=== PATIENT | female | born 2005 | race Caucasian/White ===

== ENCOUNTER 2025-06-19 12:54 | Outpatient (AMB) | payer OTHER, SELFPAY ==
--- NOTE | 2025-06-19 13:17 | A.OFFVIS_ITS ---
Intake Visit Reasons: testosterone therapy Intake Note: Patient is present for testosterone therapy Urology Medication:none Antibiotic Allergy:none Blood Thinner:none Flower Picker Required: No Allergies No Known Allergies Allergy (Verified 06/19/25 13:19) HPI Comments Details: Meaghan Wall is a pleasant 20-year-old identifying male patient of Dr. Warner who was accompanied by his service dog Luz at today's office visit. Duke presents to the office today as a new patient for testosterone replacement. In discussion with the patient today Duke reports previously being on day tosterone replacement with PCP in the past however is enquiring testosterone replacement with [facility] and therefore was referred here. Duke reports previously being on testosterone replacement for over 2 years. Duke has previously trialed testosterone replacement via patches. Duke reports he was injecting testosterone 0.4 mL weekly however does not wish to continue with injectable therapy. Duke otherwise denies any bothersome urinary issues. Duke denies urinary urgency, urinary frequency, incontinence, nocturia, hematuria, dysuria, foul smelling urine, changes to urinary stream, flank pain, fever, and or chills. Duke is happy with his current voiding parameters. We did discuss further treatment options of testosterone replacement and risks and benefits of these treatment options. We discussed obtaining baseline labs. Duke is agreeable. Duke has undergone double mastectomy [address] Lori Baum. Duke is currently in therapy via online. All questions were answered. Duke otherwise offers no other issues or concerns at this time. Review of Systems Const All systems reviewed & are unremarkable except as noted in HPI and below Physical Exam Const General: cooperative, healthy appearing, comfortable, no acute distress, well developed, alert and awake Orientation/consciousness: patient oriented x3 Limitations: no limitations HEENT Head: Yes normal to inspection, Yes normocephalic and Yes atraumatic Ears: hearing grossly normal bilaterally Eyes General: appearance normal, both eyes and all related structures Neck Neck: Yes normal visual inspection and Yes trachea midline Chest Chest palpation & inspection: normal inspection of the chest Resp Effort & Inspection: normal respiratory effort and able to speak in complete sentences Cardio Rate: regular rate GI Inspection: Yes normal to inspection General: Yes no CVA tenderness Back/Spine/Pelvis Back: no CVA tenderness Skin General skin exam: no rashes or lesions noted Neuro General: patient oriented x3 Extrem General: Yes normal to inspection Psych Appearance: grossly normal and well kempt Mental Status: mental status grossly normal Speech and movement: Normal speech and movement present and Clear speech present Affect: normal affect Attitude: cooperative and Avoids eye contact (attititude/behavior) Thought process: Normal thought process present Thought content: Normal thought content present Insight: Fair insight present (Psych) Judgement: Fair judgement present (Psych) Results AMB Urinalysis, Automated UA Leukoctes 0 Consuelo/uL Last Edit by DAVINA Pritchett on 06/19/25 13:32 UA Nitrite Negative Last Edit by Lara David [facility] on 06/19/25 13:32 UA Urobilinogen 0.2 mg/dL Last Edit by Lara David [facility] on 06/19/25 13:3 2 UA Protein 15 mg/dL Last Edit by Lara David [facility] on 06/19/25 13:32 UA pH 8.0 Last Edit by Lara David [facility] on 06/19/25 13:32 UA Blood 0 [place]/uL Last Edit by Lara David [facility] on 06/19/25 13:32 UA Specific [place] 1.015 Last Edit by Lara David [facility] on 06/19/25 13: 32 UA Ketone Negative Last Edit by Lara David [facility] on 06/19/25 13:32 UA Bilirubin 0 mg/dL Last Edit by Lara David [facility] on 06/19/25 13:32 UA Glucose 0 mg/dL Last Edit by Lara David [facility] on 06/19/25 13:32 Results Reviewed Results Reviewed: Laboratory Last Values Urine pH (Auto) 8.0 06/19/25 13:31 Specific [place] (Auto) 1.015 06/19/25 13:31 Urine Protein (Auto) 15 mg/dL 06/19/25 13:31 Glucose (UA)(Auto) 0 mg/dL 06/19/25 13:31 Urine Ketones (Auto) Negative 06/19/25 13:31 Urine Blood (Auto) 0 [place]/uL 06/19/25 13:31 Urine Nitrite (Auto) Negative 06/19/25 13:31 Urine Bilirubin (Auto) 0 mg/dL 06/19/25 13:31 Urine Urobilinogen (Auto) 0.2 mg/dL 06/19/25 13:31 Leukocyte Esterase (Auto) 0 Consuelo/uL 06/19/25 13:31 Assessment & Plan Assessment & Plan (1) Transgender person on hormone therapy: Code(s): F64.0 - Transsexualism; 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 We did discuss further treatment options of testosterone replacement and risks and benefits of these treatment options. Will obtain CBC, liver function tests, A1c, fasting lipids, prolactin, LH, FSH, and testosterone for further assessment evaluation. He currently denies any bothersome urinary issues or concerns. He reports be happy with current voiding parameters. Follow-up in 2-4 weeks with labs to be completed prior; or sooner with any issues, concerns, and or questions. 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 All questions were answered. Physical exam, labs, and imaging were discussed and reviewed in detail. As well as risks, benefits, and discussion of treatment choices. No major barriers to understanding were identified. The patient expressed understanding and agreement with the above treatment plan. The patient was made aware they should contact our office by phone for worsening of their current condition, the appearance of new symptoms, or with any questions or concerns. Compliance is encouraged with any medications and follow up testing that is ordered. It is a privilege to be allowed the opportunity to participate in? your urological care.? Again, if you have any questions or concerns If you have any questions or concerns please do not hesitate to contact me. The office is [phone]. This note is constructed using voice recognition software. While every effort has been made to ensure accuracy stone gang sawyer errors may have been included. Yours sincerely, TOM Perez Coding Level of Care Code New Pt Level 3 (54142) Diagnoses Transgender person on hormone therapy F64.0; Z79.899
--- OUTSIDE RECORDS SUMMARY | 2025-06-19 14:04 | XMS_ITS | Clinical Summary ---
Author Organization [facility] Address [address] [place] [id number] Phone Care Team Providers Care Joint Cleaning Machine Operator Name Role Phone Unavailable Primary Care Provider Unavailabl e Allergies Active Allergy Reactions Criticality Noted Date Comments Environmental Medications norethindrone 5 MG tablet Take 5 mg by mouth once daily. 05/17/20 21 Active testosterone enanthate 200 MG/ML injection INJECT 50 MG UNDER THE SKIN WEEKLY (THU) FOR 4 WEEKS 02/28/20 22 Active BD SafetyGlide Needle 25G X 5/8 misc 25 GILBERT 5/8 1CC NO TB OR INSULIN SYRINGE MUST BE LUER LOCK REF #[id number] 04/21/20 22 Active B-D SYRINGE LUER-ALEX 1CC 1 ML misc LUER LOCK SYRINGE TO BE USED WITH TESTOSTERONE 04/24/20 22 Active Androderm 4 MG/24HR APPLY 1 PATCH TOPICALLY AT BEDTIME 06/23/20 22 Active methylphenidate 10 MG tabletIndications :Attention deficit hyperactivity disorder (ADHD), combined type Take 1 tablet (10 mg total) by mouth daily. 30 tablet 08/10/20 23 Active Additional Information Patient not taking.Reported on 08/11/2023 sertraline (Zoloft) 50 MG tabletIndications :Depressive disorder,Anxiety disorder, unspecified type Take 3 tablets (150 mg total) by mouth daily. 90 tablet 01/07/20 24 Active Methylphenidate HCl ER 27 MG tablet sustained-release 24 hourIndications:A ttention deficit hyperactivity disorder (ADHD), combined type Take 27 mg by mouth every morning. 30 tablet 01/20/20 24 Active Active Problems Problem Noted Date Diagnosed Date Acne vulgaris 05/04/2023 Overview (05/04/2023): Worsening with testosterone injections Assessment & Plan (05/04/2023 3:31 PM EDT): Will start tretinoin Depressive disorder 06/20/2021 Assessment & Plan (02/12/2023 11:58 AM EDT): Bishop has been moodier of late according to dad. Hanging out with Alan more often. Ultimate melinda Will consider an increase to 150mg daily Assessment & Plan (12/18/2022 11:05 AM EST): Sees therapist Taking Zoloft 125mg with good effect Gender dysphoria 02/21/2021 Assessment & Plan (05/04/2023 3:30 PM EDT): [facility] to [facility] Injectable testosterone every other week Assessment & Plan (02/12/2023 12:03 PM EDT): Meeting with surgeon in February for potential top surgery in September Assessment & Plan (12/18/2022 11:04 AM EST): [facility] at [facility], taking testosterone Assessment & Plan (03/31/2022 9:54 AM EDT): Injections weekly Assessment & Plan (12/02/2021 2:12 PM EST): Regular appointments in [facility] Possible testosterone in February Assessment & Plan (02/21/2021 3:25 PM EDT): He/him pronouns. Prefers Bishop. No hormone therapy now. Possibly starting at [facility] program at [facility] Anxiety disorder 03/01/2020 Assessment & Plan (05/04/2023 3:28 PM EDT): Well controled with zoloft 150mg in the morning Assessment & Plan (03/31/2022 9:59 AM EDT): Feels better on Zoloft 125mg Continue with dose Assessment & Plan (12/02/2021 2:12 PM EST): More anxiety of late. Dad is concerned We discussed need to increase meds to Zoloft 125mg Consistent therapy Consistent Self care Assessment & Plan (05/13/2021 11:30 AM EDT): Doing well on zoloft Assessment & Plan (02/21/2021 3:09 PM EDT): Will increase to 75mg daily Assessment & Plan (06/25/2020 11:07 AM EDT): Doing fine, but we will increase to 50mg daily. Next refill will be for one 50mg tablet Assessment & Plan (04/06/2020 10:28 AM EDT): She is feeling better on the 37.5mg of zoloft although not eating as much. Talking with therapist regularly. No current SI Attention deficit hyperactiv ity disorder (ADHD), combined type 09/03/2015 Overview (09/07/2017): She does quite well on long acting methylphenidate Assessment & Plan (05/04/2023 3:29 PM EDT): Bishop is doing well on 27mg daily Assessment & Plan (02/12/2023 12:02 PM EDT): Maintain current dose 27mg in the morning Short acting in the day Assessment & Plan (12/18/2022 11:04 AM EST): Stick with same dose of Concerta 27mg daily and 10mg short acting occasionally Assessment & Plan (05/13/2021 11:30 AM EDT): Doing well on current dose of methylphenidate 27mg. Assessment & Plan (06/25/2020 11:13 AM EDT): Doing well on current dose Assessment & Plan (04/06/2020 10:28 AM EDT): She feels like this is a good dose and will continue over the summer. Assessment & Plan (09/27/2019 10:33 AM EST): Susan is doing well on concerta 27mg. Sleeping well and eating is ok Assessment & Plan (05/20/2019 11:40 AM EDT): Doing well on concerta 27mg during the school year. Assessment & Plan (09/24/2018 11:55 AM EST): Doing well on on 27mg. School is going well. Eating and sleeping well. Refill needed. Return in 4 months for recheck Assessment & Plan (06/21/2018 10:21 AM EDT): Doing well, took the summer off. Will give refill. Assessment & Plan (02/26/2018 3:45 PM EDT): Doing well in school. Medication is working well. Trouble sleeping. Discussed sleep hygiene. Occasionally taking melatonin Assessment & Plan (11/30/2017 2:34 PM EST): Doing well on medication. Lengthy discussion of eating more healthy foods. Sleeping fair. Will go back on melatonin at night. Hold on cyproheptadine for now. Refills given. Discussed neuropsych testing through [facility]'s office. Assessment & Plan (09/07/2017 3:28 PM EST): Doing great on dose. Started taking cyproheptadine 2 years ago. Will try and come off of it soon. Constipation 09/03/2015 Assessment & Plan (09/07/2017 3:28 PM EST): Improving overall, occasional miralax Immunizations Immunization Administration Dates Next Due COVID-19 Pfizer, monovalent, 12+ years COVID-19 Pfizer, raoul-sucros e, 12+ years 02/17/2022 COVID-19 Vaccine Moderna, se asonal, 12+ years 08/11/2023 DTaP 06/21/2010, 6,2005,09/22,2005 HPV Vaccine 9 Valent 06/21/2018,06/15/2017 Hep A, ped/adol 06/08/2009,11/12/2006 Hep B, ped/adol 2005, 5,2005,06/05 Hib (HbOC) 08/14/2006, 6,2005,07/14 IPV 06/21/2010, 6,2005,07/14 Influenza, injectable, MDCK, preservative free, quadrivalent 06/24/2023,06/04/2022 Influenza, injectable, quadrivalent 09/07/2017 Influenza, injectable, quadr ivalent, preservative free 09/30/2021,06/25/2020,09/27/2019,08/18 Influenza, injectable, trivalent 013,08/10/2012,09/27/2011,07/09,09/30/2008,09/25/2007,08/14/2006 ,2005 Influenza, injectable, triva lent, preservative free 08/23/2016 Influenza, injectable,melissa valent, preservative free, pediatric 08/18/2015 Influenza, intranasal, trivalent 08/12/2014,08/27 MMR 06/08/2009,08/14/2006 Meningococcal Conj (Menactra) MCV4P 05/13/2021,0 06/13/2016 Pneumococcal Conjugate 05/08/2006,2005,2005,07/14 Tdap 06/13/2016 Varicella 06/08/2009,08/14/2006 Family History * Patient is adopted Relation Name Status Comments Father Alive Father: 2 fatlani rs: Kwadwo Bonilla and Gus Gianlucaelva (partners) Other Alive Siblings: Geovani leone (1997), Barrie (1998) Social History Tobacco Use Types Packs/Day Years Used Date Smoking Tobacco: Never Assessed Hunger/Food Answer Date Recorded In the last 12 months, did y ou or your family ever eat less than you felt you should because there wasn't enough money for food? No 08/10/2023 Stable Housing Answer Date Recorded Are you worried that in the next 2 months you may not have stable housing? No 08/10/2023 Transportation Concerns Answer Date Rec orded In the last 12 months, have you or your family ever had to go without healthcare because you didn't have a way to get there? No 08/10/2023 Hazards in Home Answer Date Recorded Think about the place you li ve. Do you have problems with any of the following? Pests (mice or roaches), mold, no/not working smoke detectors, water leaks, no window guards. No 2022 Financing Utilities Answer Date Recorde d In the last 12 months, has t he electric, gas, oil, or water company threatened to shut off your services in your home? No 08/10/2023 Safety at Home Answer Date Recorded Are you or your family worried about feeling saf e in your home? No 08/10/2023 Outside Support Answer Date Recorded Do you feel that you need mo re support from other people or programs to help you care for yourself or your family? No 08/10/2023 Understanding Health Concerns Answer Da te Recorded Do you need help understandi ng your or your child's healthcare needs (diagnosis, medications, plan, etc.)? No 08/10/2023 Financing Health Concerns Answer Date R ecorded In the last 12 months, was t here a time when your child needed to see a doctor or get medications or supplies but could not because of cost? No 08/10/2023 Missing School or Work Answer Date Abelino rded Did you or your child miss s chool or work because of a health problem that could have been avoided? No 08/10/2023 Comments Unknown Sex and Gender Information Value Date Recorded Sex Assigned at Not on file Legal Sex Female 6:59 PM EST Gender Identity Transgender Male 02/21/2021 3:07 PM EDT Sexual Orientation Bisexual 05/13/2021 11 :29 AM EDT Last Filed Vital Signs Vital Sign Reading Time Taken Comments Blood Pressure 120/80 08/11/2023 9:30 AM EDT Pulse 83 05/04/2023 3:17 PM EDT Temperature 36.9 C (98.4 F) 09/30/2021 2:15 PM EST Respiratory Rate - - Oxygen Saturation - - Inhaled Oxygen Concentration - - Weight 69.9 kg (154 lb) 08/11/2023 9:30 AM EDT Height 165.4 cm (5' 5.12 ) 08/11/2023 9:30 AM ED T Body Mass Index 25.53 08/11/2023 9:30 AM EDT Plan of Treatment Health Maintenance Due Date Last Done Comments Men B Vaccine (1 of 2 - Standard) 2021 COVID-19 Vaccine (7 - 2023-2 5 season) 2024 08/11/2023, 08/18/2022, 02/17/2022, Additional history exists Influenza Vaccines (#1) 2025 06/24/20, 06/04/2022, 09/30/2021, Additional history exists DTaP,Tdap,and Td Vaccines (7 - Td or Tdap) 06/13/2026 06/13/2016, 06/21/2010, 08/14/2006, Additional history exists Hepatitis B Vaccines Completed 2005, 2005, 2005, Additional history exists Pneumococcal Vaccine Completed 05/08/2006, 2005, 2005, Additional history exists HIB Vaccines Completed 08/14/2006, 03/2006, 2005, Additional history exists Hepatitis A Vaccines Completed 06/08/2009, 11/12/19 07 MMR Vaccines Completed 06/08/2009, 08/14/2006 Varicella Vaccines Completed 06/08/2009, 08/14/2006 IPV Vaccines Completed 06/21/2010, 03/2006, 2005, Additional history exists HPV Vaccines Completed 06/21/2018, 06/15/2017 Meningococcal Vaccine Completed 05/13/2021, 016 Insurance [facility] NON [place] [address] [place] [address] HMO [facility] NON [facility]CC
--- OUTSIDE RECORDS SUMMARY | 2025-06-19 14:04 | XMS_ITS | Clinical Summary ---
Author Organization [facility] Address [address] [place] [phone] Phone Care Team Providers Care Policewoman Name Role Phone Puriv Walton NP Primary Care Provider Allergies Active Allergy Reactions Criticality Noted Date Comments Pollen Extracts 05/18/2022 Medications methylphenidate HCl (RITALIN) 10 MG tablet Take 10 mg by mouth daily. 2 Active methylphenidate HCl 27 MG CR tablet Take 27 mg by mouth every morning. 2 Active norethindrone (AYGESTIN) 5 mg tablet Take 5 mg by mouth. 1 Active sertraline (ZOLOFT) 50 MG tablet Take 125 mg by mouth. 2 Active testosterone enanthate (DELATESTRYL) 200 mg/mL injection INJECT 50 MG UNDER THE SKIN WEEKLY (THU) FOR 4 WEEKS 2 Active BD LUER-ALEX SYRINGE 1 mL Syrg LUER LOCK SYRINGE TO BE USED WITH TESTOSTERONE 2 Active BD SAFETYGLIDE NEEDLE 25 gauge x 5/8 Ndle 25 GILBERT 5/8 1CC NO TB OR INSULIN SYRINGE MUST BE LUER LOCK REF #[id number] 2 Active buPROPion (WELLBUTRIN XL) 300 MG ER 24 hr tablet 4 Active PREVIDENT 5000 SENSITIVE 1.1-5 % Pste USE 2-3X/DAILY, SPIT OUT EXCESS. DO NOT RINSE WITH WATER. NO EATING OR DRINKING FOR 45 MIN AFTER 4 Active BD REGULAR BEVEL NEEDLES 18 gauge x 1 1/2 Ndle USE DIRECTED TO DRAW UP TESTOSTERONE ONCE A WEEK Active Social History Tobacco Use Types Packs/Day Years Used Date Smoking Tobacco: Never Smokeless Tobacco: Never Tobacco Cessation:Counseling Given: Not Answered Alcohol Use Standard Drinks/Week Comments Never 0 (1 standard drink = 0.6 oz pur e alcohol) Education Answer Date Recorded Are you interested in more education? Not on leonarda e 02/21/2023 Are you concerned about learning? Not on file 02/21/2023 No 02/21/2023 No 02/21/2023 Digital Access Answer Date Recorded No 03/24/2023 No 03/24/2023 Reliable internet access at home? Not on file 03/24/2023 Device with a working camera? Not on file Comments No Sex and Gender Information Value Date Recorded Sex Assigned at Not on file Legal Sex Female 1:01 PM EDT Gender Identity Not on file Sexual Orientation Not on file Last Filed Vital Signs Vital Sign Reading Time Taken Comments Blood Pressure 110/76 09/14/2024 7:57 AM EST Pulse 94 05/18/2022 1:49 PM EDT Temperature 36.9 C (98.5 F) 05/18/2022 1:49 PM EDT Respiratory Rate - - Oxygen Saturation 96% 05/18/2022 1:49 PM EDT Inhaled Oxygen Concentration - - Weight 69.7 kg (153 lb 9.6 oz) 09/14/2024 7:57 A M EST Height 162.6 cm (5' 4 ) 09/14/2024 7:57 AM EST Body Mass Index 26.37 09/14/2024 7:57 AM EST Plan of Treatment Health Maintenance Due Date Last Done Comments DEVELOPMENTAL/BEHAVIORAL SCREENING (PHQ, PSC, or SWYC) 2008 DEPRESSION SCREENING 2017 HPV VACCINES (1 - 3-dose series) 2020 MENINGOCOCCAL VACCINES (B) (1 of 2 - Standard) 2021 ADOLESCENT UNIVERSAL LIPID SCREENING 2022 HEPATITIS C SCREENING 2023 HIV ONE-TIME SCREENING (18-65 YEARS) 2023 SMOKING Hx and SMOKELESS TOBACCO SCREENING 09/14/2025 09/14/2024 COMBINED DTaP,Tdap,Td (7 - Td or Tdap) 06/13/2026 06/13/2016, 06/21/2010, 08/14/2006, Additional history exists MMR VACCINES Completed 06/08/2009, 08/14/2006 VARICELLA VACCINES Completed 06/08/2009, 08/14/2006 COVID-19 VACCINE Completed 07/14/2024 HEPATITIS A VACCINES Aged Out No long er eligible based on patient's age to complete this topic HIB VACCINES Aged Out No longer eligi ble based on patient's age to complete this topic MENINGOCOCCAL VACCINES (ACWY) Aged Out No longer eligible based on patient's age to complete this topic PNEUMOCOCCAL VACCINES (0-49 years) Aged Out No longer eligible based on patient's age to complete this topic Medical Devices Not on file [place] [address] [address] ACO Care Teams Policewoman Relationship Specialty Start Date End Date Purvi Walton NP [address] [facility] [address] [place] [address] PCP - General Nurse Practitioner 09/05/24 Additional Source Comments The information contained in this document represents components of the legal health record. It is not the complete legal health record.[facility]
--- OUTSIDE RECORDS SUMMARY | 2025-06-19 14:04 | XMS_ITS | Clinical Summary ---
Author Organization [facility] Address [address] [place] [address] Phone Care Team Providers Care Food Preparer Name Role Phone Jeff Soliz MD Primary Care Provider [phone] Jeff Soliz MD Unavailable Jeff Solzi MD Unavailable Medications * This document contains information received from the source organization and may not represent a complete record from that organization. methylphenidate (Ritalin) 10 mg tablet mg, tab, PO, BID, Refills: 0, Entered: 05/17/21 16:02:00 EDT 05/17/2021 Active norethindrone (Aygestin) 5 mg tablet Dose: 5 mg, Dose Amount: 1 tab, PO, daily, Dispense Quantity: 90 tab, Refills: 2, Entered: 09/03/23 9:49:00 EST, [id number] 09/03/2023 Active testosterone enanthate (Delatestryl) 200 mg/mL injection Dose: 50 mg, Subcutaneous, WeeklyMonday, Special Instructions: please dispense 2mL as some is lost when draing up medication, Dispense Quantity: 2 mL, Refills: 5, Entered: 12/19/22 10:16:00 EST, [id number] 12/19/2022 Active sertraline HCl (SERTRALINE ORAL) Take by mouth 1 time each day. 05/17/2021 Active Active Problems Problem Noted Date Diagnosed Date Attention deficit hyperactivity disorder (ADHD) 05/17/2021 Depression 05/17/2021 Immunizations Immunization Administration Dates Next Due Mom Made Foods Purple Cap SARS-CoV-2 04/07/2021,03/17/20 21 Social History Tobacco Use Types Packs/Day Years Used Date Smoking Tobacco: Never Assessed Comments Unknown Sex and Gender Information Value Date Recorded Sex Assigned at Female 02/02/2024 6:48 PM EDT Legal Sex Female 6:48 PM EDT Gender Identity Not on file Sexual Orientation Not on file Last Filed Vital Signs Vital Sign Reading Time Taken Comments Blood Pressure 117/70 09/03/2023 9:11 AM EST Pulse 122 09/03/2023 9:11 AM EST Temperature - - Respiratory Rate - - Oxygen Saturation - - Inhaled Oxygen Concentration - - Weight 69.4 kg (153 lb) 09/03/2023 9:11 AM EST Height 164.7 cm (5' 4.84 ) 09/03/2023 9:11 AM ES T Body Mass Index 25.58 09/03/2023 9:11 AM EST Plan of Treatment Health Maintenance Due Date Last Done Comments Meningococcal B Vaccine (1 of 2 - Standard) 2021 COVID-19 Vaccine ( - season) 2024 08/11/2023, 02/17/2022, 11/22/2021, Additional history exists Influenza Vaccine (#1) 2025 , 06/04/2022, 09/30/2021, Additional history exists DTaP/Tdap/Td Vaccines (7 - Td or Tdap) 06/13/2026 06/13/2016, 06/21/2010, 08/14/2006, Additional history exists Hepatitis B Vaccines Completed 2005, 2005, 2005, Additional history exists Pneumococcal Vaccine: Pediatrics (0 to 5 Years) and At-Risk Patients (6 to 49 Years) Aged Out 05/08/2006, 2005, 2005, Additional history exists No longer eligible based on patient's age to complete this topic HIB Vaccines Completed 08/14/2006, 03/2006, 2005, Additional history exists Hepatitis A Vaccines Completed 06/08/2009, 11/12/19 MMR Vaccines Completed 06/08/2009, 08/14/2006 Varicella Vaccines Discontinued 06/08/2009, 08/14/2006 IPV Vaccines Completed 06/21/2010, 02/0 03/2006, 2005, Additional history exists HPV Vaccines Completed 06/21/2018, 06/15/2017 Meningococcal Vaccine Completed 05/13/2021, 016 Rotavirus Vaccines Aged Out No longer eligible based on patient's age to complete this topic Care Teams Food Preparer Relationship Specialty Start Date End Date Jeff Soliz MD [address] [place] [address] PCP - General 05/18/13 Jeff Soliz MD [address] [place] [address] PCP - Insurance PCP 10/08/18 Jeff Soliz MD [address] [place] [address] PCP - Clinical PCP 03/25/11
== END 2025-06-19 13:47 | disposition home or self-care (01) ==
LOC: HO.HUSH 12:54
PROVIDERS: PCP Internal Medicine Endocrinology, Diabetes & Metabolism; Visit Provider Nurse Practitioner Family
DX: F64.0 Transsexualism (principal); Z79.899 Other long term (current) drug therapy; Z13.9 Encounter for screening, unspecified
CPT/HCPCS: 99203

== ENCOUNTER → 2025-06-19 12:54 | Outpatient (BNVA) | payer OTHER, SELFPAY | PROVIDERS: PCP Internal Medicine Endocrinology, Diabetes & Metabolism; Visit Provider Nurse Practitioner Family | DX: Z79.899 Other long term (current) drug therapy (principal) | CPT/HCPCS: 81003 ==

== ENCOUNTER 2025-06-27 07:43 | Outpatient (REF) | payer OTHER, SELFPAY ==
--- OUTSIDE RECORDS SUMMARY | 2025-06-27 07:48 | XMS_ITS | Encounter Summary ---
Author Organization [facility] Address [address] [place] [address] Phone Care Team Providers Care Professional Sports Scout Name Role Phone Jeff Soliz MD Primary Care Provider [phone] Encounter Details Date Type Department Care Team (Late st Contact Info) Description 06/03/2017 Conversion Encounter [facility] [address] [place] [address] Jeff Soliz MD [address] [place] [address] Social History Tobacco Use Types Packs/Day Years Used Date Smoking Tobacco: Never Assessed Comments Unknown Sex and Gender Information Value Date Recorded Sex Assigned at Not on file Legal Sex Female 6:59 PM EST Gender Identity Transgender Male 02/21/2021 3:07 PM EDT Sexual Orientation Bisexual 05/13/2021 11 :29 AM EDT documented as of this encounter Plan of Treatment Not on file documented as of this encounter Visit Diagnoses Not on filedocumented in this encounter Care Teams Professional Sports Scout Relationship Specialty Start Date End Date Jeff Soliz MD [address] [place] [address] PCP - General Pediatrics 01/20/24 01/20/24 documented as of this encounter
--- OUTSIDE RECORDS SUMMARY | 2025-06-27 07:48 | XMS_ITS | Clinical Summary ---
Author Organization [facility] Address [address] [place] [address] Phone Care Team Providers Care Wire Drawing Machine Tender Name Role Phone Jeff Soliz MD Primary Care Provider [phone] Jeff Soliz MD Unavailable Jeff Soliz MD Unavailable Medications * This document contains [...] 05/17/2021 Immunizations Immunization Administration Dates Next Due [employer] Purple Cap SARS-CoV-2 04/07/2021,03/17/20 21 Social History [...] age to complete this topic Care Teams Wire Drawing Machine Tender Relationship Specialty Start Date End Date Jeff Soliz MD [address] [place] [address] PCP - General 05/18/13 Jeff Soliz MD [address] [place] [address] PCP - Insurance PCP 10/08/18 Jeff Soliz MD [address] [place] [address] PCP - Clinical PCP 03/25/11
--- OUTSIDE RECORDS SUMMARY | 2025-06-27 07:48 | XMS_ITS | Encounter Summary ---
Author Organization [facility] Address [address] [place] [address] Phone Care Team Providers Care Design Analyst Name Role Phone Jeff Soliz MD Primary Care Provider [phone] Reason for Visit * Reason Comments Med Refill Encounter Details Date Type Department Care Team ([facility] st Contact Info) Description 05/10/2022 Refill [facility] [address] [place] [address] Jeff Soliz MD [address] [place] [address] Depressive disorder; Anxiety disorder, unspecified type Social History Tobacco Use Types Packs/Day Years Used Date Smoking Tobacco: Never Assessed Hunger/Food Answer Date Recorded In the last 12 months, did y ou or your family ever eat less than you felt you should because there wasn't enough money for food? No 05/13/2021 Stable Housing Answer Date Recorded Are you worried that in the next 2 months you may not have stable housing? No 05/13/2021 Transportation Concerns Answer Date Rec orded In the last 12 months, have you or your family ever had to go without healthcare because you didn't have a way to get there? No 05/13/2021 Hazards in Home Answer Date Recorded Think about the place you li ve. Do you have problems with any of the following? Pests (mice or roaches), mold, no/not working smoke detectors, water leaks, no window guards. No 2020 Financing Utilities Answer Date Recorde d In the last 12 months, has t he electric, gas, oil, or water company threatened to shut off your services in your home? No 05/13/2021 Safety at Home Answer Date Recorded Are you or your family worried about feeling saf e in your home? No 05/13/2021 Outside Support Answer Date Recorded Do you feel that you need mo re support from other people or programs to help you care for yourself or your family? No 05/13/2021 Understanding Health Concerns Answer Da te Recorded Do you need help understandi ng your or your child's healthcare needs (diagnosis, medications, plan, etc.)? No 05/13/2021 Financing Health Concerns Answer Date R ecorded In the last 12 months, was t here a time when your child needed to see a doctor or get medications or supplies but could not because of cost? No 05/13/2021 Missing School or Work Answer Date Abelino rded Did you or your child miss s chool or work because of a health problem that could have been avoided? No 05/13/2021 Comments Unknown Sex and Gender Information Value Date Recorded Sex Assigned at Not on file Legal Sex Female 6:59 PM EST Gender Identity Transgender Male 02/21/2021 3:07 PM EDT Sexual Orientation Bisexual 05/13/2021 11 :29 AM EDT documented as of this encounter Plan of Treatment Not on file documented as of this encounter Visit Diagnoses Diagnosis Depressive disorder Depressive disorder, not elsewhere classified Anxiety disorder, unspecified type documented in this encounter Care Teams Design Analyst Relationship Specialty Start Date End Date Jeff Soliz MD [address] [place] [address] PCP - General Pediatrics 01/20/24 01/20/24 documented as of this encounter
--- OUTSIDE RECORDS SUMMARY | 2025-06-27 07:48 | XMS_ITS | Clinical Summary ---
Author Organization [facility] Address [address] [place] [address] Phone Care Team Providers Care On Air Personality Name Role Phone Purvi Walton NP Primary Care Provider Allergies Active [...] INSULIN SYRINGE MUST BE LUER LOCK REF #[id number] 2 Active buPROPion (WELLBUTRIN XL) 300 MG [...] topic Medical Devices Not on file Insurance [address] [address] ACO Care Teams On Air Personality Relationship Specialty Start Date End Date Purvi Walton NP [facility] [address] [place] [address] PCP - General Nurse Practitioner 09/05/24 Additional Source Comments The information contained in this document represents components of the legal health record. It is not the complete legal health record.[facility]
--- OUTSIDE RECORDS SUMMARY | 2025-06-27 07:48 | XMS_ITS | Encounter Summary ---
Author Organization [facility] Address [address] [place] [address] Phone Care Team Providers Care Credit Charge Authorizer Name Role Phone Jeff Soliz MD Primary Care Provider [phone] Reason for Visit * Reason Comments Med Refill Encounter Details Date Type Department Care Team (Late st Contact Info) Description 03/19/2020 Refill [facility] [address] [place], [place] [id number] Jeff Soliz MD [address] [place] [address] Anxiety disorder, unspecified type Social History Tobacco Use Types Packs/Day Years Used Date Smoking Tobacco: Never Assessed Hunger/Food Answer Date Recorded No 05/20/2019 Stable Housing Answer Date Recorded No 10/29/2019 Transportation Concerns Answer Date Rec orded No 05/20/2019 Hazards in Home Answer Date Recorded No 05/20/2019 Financing Utilities Answer Date Recorde d No 05/20/2019 Safety at Home Answer Date Recorded No 05/20/2019 Outside Support Answer Date Recorded No 05/20/2019 Understanding Health Concerns Answer Da te Recorded No 05/20/2019 Financing Health Concerns Answer Date R ecorded No 05/20/2019 Missing School or Work Answer Date Abelino rded No 05/20/2019 Comments Unknown Sex and Gender Information Value Date Recorded Sex Assigned at Not on file Legal Sex Female 6:59 PM EST Gender Identity Transgender Male 02/21/2021 3:07 PM EDT Sexual Orientation Bisexual 05/13/2021 11 :29 AM EDT documented as of this encounter Miscellaneous Notes * Telephone Encounter - Linsey Muse RN - 04/02/2020 5:[address] Soliz can you please refuse this med, the phone nurses cannot get it out of our cue with a Rx still attached (it also wont let us refuse the med) thanks! * Telephone Encounter - Linsey Muse RN - 03/20/2020 9:13 AM EDT Dad states he is unsure if he needs a new Rx, will call pharmacy and confirm with us if needed * Telephone Encounter - Jeff Soliz MD - 03/20/2020 8:18 AM EDT Please call to check on dose and see if a new prescription is needed documented in this encounter Plan of Treatment Not on file documented as of this encounter Visit Diagnoses Diagnosis Anxiety disorder, unspecified type documented in this encounter Care Teams Credit Charge Authorizer Relationship Specialty Start Date End Date Jeff Soliz MD [address] [place] [address] PCP - General Pediatrics 01/20/24 01/20/24 documented as of this encounter
--- OUTSIDE RECORDS SUMMARY | 2025-06-27 07:48 | XMS_ITS | Encounter Summary ---
Author Organization [facility] Address [address] [place] [address] Phone Care Team Providers Care It Telecom Technician Name Role Phone Jeff Soliz MD Primary Care Provider [phone] Reason for Visit * Reason Comments Med Refill Encounter Details Date Type Department Care Team ([facility] st Contact Info) Description 07/22/2020 Refill [facility] [address] [place] [address] Jeff Soliz MD [address] [place] [address] Anxiety disorder, unspecified type Social History Tobacco Use Types Packs/Day Years Used Date Smoking Tobacco: Never Assessed Hunger/Food Answer Date Recorded In the last 12 months, did y ou or your family ever eat less than you felt you should because there wasn't enough money for food? No 06/25/2020 Stable Housing Answer Date Recorded Are you worried that in the next 2 months you may not have stable housing? No 06/25/2020 Transportation Concerns Answer Date Rec orded In the last 12 months, have you or your family ever had to go without healthcare because you didn't have a way to get there? No 06/25/2020 Hazards in Home Answer Date Recorded Think about the place you li ve. Do you have problems with any of the following? Pests (mice or roaches), mold, no/not working smoke detectors, water leaks, no window guards. No 2019 Financing Utilities Answer Date Recorde d In the last 12 months, has t he electric, gas, oil, or water company threatened to shut off your services in your home? No 06/25/2020 Safety at Home Answer Date Recorded Are you or your family worried about feeling saf e in your home? No 06/25/2020 Outside Support Answer Date Recorded Do you feel that you need mo re support from other people or programs to help you care for yourself or your family? No 06/25/2020 Understanding Health Concerns Answer Da te Recorded Do you need help understandi ng your or your child's healthcare needs (diagnosis, medications, plan, etc.)? No 06/25/2020 Financing Health Concerns Answer Date R ecorded In the last 12 months, was t here a time when your child needed to see a doctor or get medications or supplies but could not because of cost? No 06/25/2020 Missing School or Work Answer Date Abelino rded Did you or your child miss s chool or work because of a health problem that could have been avoided? No 06/25/2020 Comments Unknown Sex and Gender Information Value Date Recorded Sex Assigned at Not on file Legal Sex Female 6:59 PM EST Gender Identity Transgender Male 02/21/2021 3:07 PM EDT Sexual Orientation Bisexual 05/13/2021 11 :29 AM EDT documented as of this encounter Miscellaneous Notes * Telephone Encounter - Linsey Muse RN - 07/27/2020 2:01 PM EDT Dad calling back and confirmed dose was increased at last visit. Confirms [address] Soliz please advise on new Rx, dad states OK to switch to one 50mg tab and aware to read new Rxwhen picked up. * Telephone Encounter - Angelique Lopez RN - 07/27/2020 10:07 AM EDT Dad requests refill of Sertraline 50 mg daily. Last script written on 05/14/20 was for Sertraline 25 mg, take 1 1/2 tabs daily. Last well visit was 06/25/20. Left message for dad to call back to confirm dose. * Telephone Encounter - Linsey Muse RN - 07/23/2020 2:45 PM EDT LM on dad cell to call back to confirm if refill is needed documented in this encounter Plan of Treatment Not on file documented as of this encounter Visit Diagnoses Diagnosis Anxiety disorder, unspecified type documented in this encounter Care Teams It Telecom Technician Relationship Specialty Start Date End Date Jeff Soliz MD [address] [place] [address] PCP - General Pediatrics 01/20/24 01/20/24 documented as of this encounter
--- OUTSIDE RECORDS SUMMARY | 2025-06-27 07:48 | XMS_ITS | Clinical Summary ---
Author Organization [facility] Address [address] [place] [address] Phone Care Team Providers Care Crane Operator Name Role Phone Unavailable Primary Care [...] INSULIN SYRINGE MUST BE LUER LOCK REF #[id number] 04/21/20 22 Active B-D SYRINGE LUER-ALEX 1CC [...] Plan (05/04/2023 3:30 PM EDT): [facility] Inject[facility] testosterone every other week Assessment & Plan (02/12/2023 12:03 PM EDT): Meeting with surgeon in February for potential top surgery in September Assessment & Plan (12/18/2022 11:04 AM EST): [facility] at [facility], taking testosterone Assessment & Plan (03/31/2022 9:54 AM EDT): Injections weekly Assessment & Plan (12/02/2021 2:12 PM EST): Regular appointments in [facility] Possible testosterone in February Assessment & Plan (02/21/2021 3:25 PM EDT): He/him pronouns. Prefers [facility]. No hormone therapy now. Possibly starting at [facility] at [facility] Anxiety disorder 03/01/2020 Assessment & [...] Discussed neuropsych testing through [facility]'s office. Assessment & Plan (09/07/2017 3:28 PM [...] 08/10/2023 Missing School or Work Answer Date Abeilno rded Did you or your child miss [...] Vaccine (1 of 2 - Standard) 2021 Influenza Vaccines (#1) 2025 06/24/20 23, 06/04/2022, 09/30/2021, Additional history exists COVID-19 Vaccine (7 - 2024-2 6 season) 2025 08/11/2023, 08/18/2022, 02/17/2022, Additional history exists DTaP,Tdap,and Td Vaccines (7 [...] 06/15/2017 Meningococcal Vaccine Completed 05/13/2021, 016 Insurance [facility] [place] [address] [place] [address] HMO [facility]
--- OUTSIDE RECORDS SUMMARY | 2025-06-27 07:48 | XMS_ITS | Encounter Summary ---
Author Organization [facility] Address [address] [place] [address] Phone Care Team Providers Care Director Machine Name Role Phone Jeff Soliz MD Primary Care Provider [phone] Jeff Soliz MD Unavailable Jeff Soliz MD Unavailable Encounter Details Date Type Department Care Team (Latest Contact Info) Description 03/25/2024 Abstract Cerner Conversion ProviderJigna MD [address] [place] [address] Social History Tobacco Use Types Packs/Day Years Used Date Smoking Tobacco: Never Assessed Comments Unknown Sex and Gender Information Value Date Recorded Sex Assigned at Female 02/02/2024 6:48 PM EDT Legal Sex Female 6:48 PM EDT Gender Identity Not on file Sexual Orientation Not on file documented as of this encounter Plan of Treatment Not on file documented as of this encounter Visit Diagnoses Not on filedocumented in this encounter Care Teams Director Machine Relationship Specialty Start Date End Date Jeff Soliz MD [address] [place] [address] PCP - General 05/18/13 Jeff Soliz MD [address] [place] [address] PCP - Insurance PCP 10/08/18 Jeff Soliz MD [address] [place] [address] PCP - Clinical PCP 03/25/11 documented as of this encounter
[2025-06-27 08:46] LABS: Hematocrit 41.3 % (37.0-47.0); Hemoglobin 14.3 g/dl (12.0-16.0); Mean Corpuscular HGB Conc 34.6 g/dl (31.0-35.0); Mean Corpuscular Hemoglobin 30.8 pg (27.0-33.0); Mean Corpuscular Volume 89.0 fL (80.0-98.0); NRBC Abs Auto 0.000 X10*3/uL (0.0-0.012); NRBC Pct Auto 0.0 /100WBC (0.0-0.2); Platelet Count 249 X10*3/uL (160-400); Red Blood Count 4.64 X10*6/uL (4.20-5.50); White Blood Count 5.7 X10*3/uL (4.8-10.8)
[2025-06-27 08:54] LABS: Hemoglobin A1C 116.9788 umol/L; Total Hemoglobin (HGBA1C) 3644.1327 umol/L
[2025-06-27 09:27] LABS: Alanine Aminotransferase 20 U/L (0-31); Albumin Level 4.9 g/dL (3.5-5.0); Alkaline Phosphatase 75 U/L (39-117); Anion Gap 11 (12-20); Aspartate Amino Transferase 23 U/L (5-31); Blood Urea Nitrogen 11 mg/dL (9-16); Calcium 9.3 mg/dL (8.4-10.2); Carbon Dioxide 27 mmol/L (22-29); Chloride 106 mmol/L (96-108); Estimated Glomerular Filt Rate > 60; Potassium 4.1 mmol/L (3.3-5.1); Sodium 140 mmol/L (135-145); Total Protein 7.7 g/dL (6.5-8.0)
[2025-06-28 07:03] LABS: Follicle Stimulating Hormone 7.3 mIU/mL
[2025-07-01 16:09] LABS: Testosterone, Free 2.4 pg/mL (0.1-6.4)
[2025-07-03 08:54] LABS: Estradiol Ultra Sensitive 3 pg/mL
== END 2025-06-27 07:44 | disposition home or self-care (01) ==
LOC: HO.LAB 07:43
PROVIDERS: Visit Provider Nurse Practitioner Family
DX: F64.0 Transsexualism (principal); Z79.899 Other long term (current) drug therapy
CPT/HCPCS: 36415; 80048; 80076; 82670; 83001; 83002; 83036; 84146; 84402; 84403; 85027

== ENCOUNTER 2025-07-05 15:00 | Outpatient (AMB) | payer OTHER, SELFPAY ==
--- NOTE | 2025-07-05 15:01 | A.OFFVIS_ITS ---
Intake Visit Reasons: Follow up/Labs Intake Note: Patient is present for FOLLOW UP Urology Medication:none Antibiotic Allergy:none Blood Thinner:none Labs done 06/27/25 : Estradiol : 3, FSH:7.3 , LH 4.8, Prolactin :8.7, Total Testosterone : 11. Fr Testosterone, 2.4 Advertising Account Representative Required: No Accompanied by: Self / Same As Patient Allergies No Known Allergies Allergy (Verified 07/05/25 15:06) HPI Comments Details: Meaghan Alas is a pleasant 20-year-old female template, male identifying patient of Dr. Warner. He is seen for the following urologic conditions - testosterone dosing Telemedicine Evaluation 15 min Consultation Super[employer] [place] Video Female template, male identifying - has been under therapy for gender dysphoria since 2022 - Underwent double mastectomy with Dr. Baum in 2022 - initial testosterone replacement via injectable. Has difficulty with proper dosage administration. Unable to properly place intramuscular. Has no other people who are able to inject for him. - unable to tolerate testosterone gel secondary to concerns and fears regarding transfer to other females within his [place]. Has diagnosis of ADHD in concerns about regularly remembering to applied dosage. - ADHD managed with combination considered and bupropion Has heard about testicle which would be a smoother form of administration and not require remembering daily application Discussed administration every 12 weeks Highlighted super physiologic dosing in a Female templated body with increased risks of diabetes mellitus and cardiac disease over a 10 year timeframe. This is based on recent [facility] data. We will try and get insurance approval Review of Systems Const All systems reviewed & are unremarkable except as noted in HPI and below Reports no additional complaints Resp Reports no additional complaints GI Reports no additional complaints Reports as per HPI Musc Reports no additional complaints Physical Exam Telemedicine evaluation Appropriate responses Regular breathing rate and rhythm HEENT Head: Yes normal to inspection Ears: hearing grossly normal bilaterally Eyes General: appearance normal, both eyes and all related structures Neck Neck: Yes normal visual inspection Chest Chest palpation & inspection: normal inspection of the chest Resp Effort & Inspection: normal respiratory effort and able to speak in complete sentences Telehealth Telehealth Telehealth Platform: Superfish Location of provider rendering services: practice address Location of patient: address on file Patient Identification confirmed using: Name, : Yes Telehealth method: video Patient verbally consented to treatment: Yes Patient verbally consented to billing insurance company: Yes Patient informed of any privacy concerns related to visit: Yes Assessment & Plan Assessment & Plan (1) Transgender person on hormone therapy: Code(s): F64.0 - Transsexualism; Z79.899 - Other manager long term care (current) drug therapy Category: Medical Plan Will apply for testopel administration Patient Instructions: This note is constructed using voice recognition software. While every effort has been made to ensure accuracy consumer insight analyst errors may have been included. Imaging studies, laboratory and physical exam results were discussed and reviewed in detail. No major barriers to patient understanding were identified. An opportunity to ask questions regarding the treatment plan was provided. All questions were answered. The patient expressed understanding and agreement with the above treatment plan. The patient is aware they should contact our office by phone for worsening of their current condition or the appearance of new urologic symptoms. Compliance is encouraged with any medications and followup testing that is ordered. It is a privilege to participate in the urologic care of your patient. If you have any questions or concerns regarding treatment for the above conditions, or other urologic issues, please do not hesitate to contact me. The office telephone contact is [phone]. Sincerely, Dr Tunde Dinh MD, [facility] - Urology Compassionate Specialist Care for the Genitourinary System Coding Level of Care Code Tele Est Pt Level 4 (15514) Complex EM visit Add On G2211 Diagnoses Transgender person on hormone therapy F64.0; Z79.899
--- OUTSIDE RECORDS SUMMARY | 2025-07-05 18:08 | XMS_ITS | Encounter Summary ---
Author Organization [facility] Address [address] [place] [address] Phone Care Team Providers Care Client Experience Consultant Name Role Phone Jeff Soliz MD Primary Care Provider [phone] Reason for Visit * Reason Comments Med Refill Encounter Details Date Type Department Care Team ([facility] st Contact Info) Description 05/10/2022 Refill [facility] [address] [place] [address] Jeff Soliz MD [address] [place] [address] Depressive disorder; Anxiety disorder, unspecified type Social [...] type documented in this encounter Care Teams Client Experience Consultant Relationship Specialty Start Date End Date Jeff Soliz MD [address] [place] [address] PCP - General Pediatrics 01/20/24 01/20/24 documented as of this encounter
--- OUTSIDE RECORDS SUMMARY | 2025-07-05 18:08 | XMS_ITS | Encounter Summary ---
Author Organization [facility] Address [address] [place] [address] Phone Care Team Providers Care Interim Controller Name Role Phone Jeff Soliz MD Primary Care Provider [phone] Reason for Visit * Reason Comments Med Refill Encounter Details Date Type Department Care Team ([facility] st Contact Info) Description 07/22/2020 Refill [facility] [address] [place] [address] Jeff Soliz MD [address] [place] [address] Anxiety disorder, unspecified type Social History Tobacco [...] type documented in this encounter Care Teams Interim Controller Relationship Specialty Start Date End Date Jeff Soliz MD [address] [place] [address] PCP - General Pediatrics 01/20/24 01/20/24 documented as of this encounter
--- OUTSIDE RECORDS SUMMARY | 2025-07-05 18:08 | XMS_ITS | Clinical Summary ---
Author Organization [facility] Address [address] [place] [address] Phone Care Team Providers Care Metal Engraver Name Role Phone Unavailable Primary Care Provider [...] INSULIN SYRINGE MUST BE LUER LOCK REF #[id number] 04/21/20 22 Active B-D SYRINGE LUER-ALEX 1CC [...] Plan (05/04/2023 3:30 PM EDT): [facility] Injectable testosterone every other week Assessment & Plan (02/12/2023 12:03 PM EDT): Meeting with surgeon in February for potential top surgery in September Assessment & Plan (12/18/2022 11:04 AM EST): [facility] at [facility], taking testosterone Assessment & Plan (03/31/2022 9:54 AM EDT): Injections weekly Assessment & Plan (12/02/2021 2:12 PM EST): Regular appointments in [facility] Possible testosterone in February Assessment & Plan (02/21/2021 3:25 PM EDT): He/him pronouns. Prefers Bishop. No hormone therapy now. Possibly starting at [facility] program at [facility] Anxiety disorder 03/01/2020 Assessment & Plan (05/04/2023 [...] now. Refills given. Discussed neuropsych testing through [facility]'s office. Assessment & Plan (09/07/2017 3:28 PM [...] 06/15/2017 Meningococcal Vaccine Completed 05/13/2021, 016 [facility] Address: [facility] [id number] [id number] [facility] [place] [address] HMO [facility] Address: [facility] [id number] [phone] [facility]
--- OUTSIDE RECORDS SUMMARY | 2025-07-05 18:08 | XMS_ITS | Encounter Summary ---
Author Organization [facility] Address [address] [place] [address] Phone Care Team Providers Care Industrial Twisting Machine Operator Name Role Phone Jfef Soliz MD Primary Care Provider [phone] Reason for Visit * Reason Comments Med Refill Encounter Details Date Type Department Care Team (Late st Contact Info) Description 03/19/2020 Refill [facility] [address] [place], [place] [id number] Jeff Soliz MD [address] [place] [address] Anxiety disorder, unspecified type Social History Tobacco [...] type documented in this encounter Care Teams Industrial Twisting Machine Operator Relationship Specialty Start Date End Date Jeff Soliz MD [address] [place] [address] PCP - General Pediatrics 01/20/24 01/20/24 documented as of this encounter
--- OUTSIDE RECORDS SUMMARY | 2025-07-05 18:08 | XMS_ITS | Clinical Summary ---
Author Organization [facility] Address [address] [place] [address] Phone Care Team Providers Care Medical Technologist Prn Name Role Phone Jeff Soliz MD Primary Care Provider Jeff Soliz MD Unavailable Jeff Soliz MD [...] 05/17/2021 Immunizations Immunization Administration Dates Next Due [employer] Purple Cap SARS-CoV-2 04/07/2021,03/17/20 21 Social History [...] (1 of 2 - Standard) 2021 Influenza Vaccine (#1) 2025 3, 06/04/2022, 09/30/2021, Additional history exists DTaP/Tdap/Td Vaccines [...] Discontinued 06/08/2009, 08/14/2006 IPV Vaccines Completed 06/21/2010, 03/2006, 2005, Additional history exists HPV Vaccines Completed 06/21/2018, 06/15/2017 Meningococcal Vaccine Completed 05/13/2021, 016 Rotavirus Vaccines Aged Out No longer eligible based on patient's age to complete this topic Care Teams Medical Technologist Prn Relationship Specialty Start Date End Date Jeff Soliz MD [address] [place] [address] PCP - General 05/18/13 Jeff Soliz MD [address] [place] [address] PCP - Insurance PCP 10/08/18 Jeff Soliz MD [address] [place] [address] PCP - Clinical PCP 03/25/11
--- OUTSIDE RECORDS SUMMARY | 2025-07-05 18:08 | XMS_ITS | Clinical Summary ---
Author Organization [facility] Address [address] [place] [address] Phone Care Team Providers Care Dope Heater Name Role Phone Purvi Walton NP Primary [...] INSULIN SYRINGE MUST BE LUER LOCK REF #[id number] 2 Active buPROPion (WELLBUTRIN XL) 300 MG [...] 2023 HIV ONE-TIME SCREENING (18-65 YEARS) 2023 INFLUENZA VACCINE (#1) 2025 06/26/2024 SMOKING Hx and SMOKELESS TOBACCO SCREENING 09/14/2025 [...] topic Medical Devices Not on file Insurance Care Teams Dope Heater Relationship Specialty Start Date End Date Purvi Walton NP [address] [place] [address] [address] [place] [address] PCP - General Nurse Practitioner 09/05/24 Additional Source Comments The information contained in this document represents components of the legal health record. It is not the complete legal health record.[facility]
--- OUTSIDE RECORDS SUMMARY | 2025-07-05 18:08 | XMS_ITS | Encounter Summary ---
Author Organization [facility] Address [address] [place] [address] Phone Care Team Providers Care Radio Installer Automobile Name Role Phone Jeff Soliz MD Primary Care Provider [phone] Jeff Soliz MD Unavailable Jeff Soliz MD Unavailable Encounter Details Date Type Department Care Team (Latest Contact Info) Description 03/25/2024 Abstract Cerner Conversion ProviderJigna MD [address] [place] [address] Social History Tobacco Use Types Packs/Day Years [...] on filedocumented in this encounter Care Teams Radio Installer Automobile Relationship Specialty Start Date End Date Jeff Soliz MD [address] [place] [address] PCP - General 05/18/13 Jeff Soliz MD [address] [place] [address] PCP - Insurance PCP 10/08/18 Jeff Soliz MD [address] [place] [address] PCP - Clinical PCP 03/25/11 documented as of this encounter
--- OUTSIDE RECORDS SUMMARY | 2025-07-05 18:08 | XMS_ITS | Encounter Summary ---
Author Organization [facility] Address [address] [place] [address] Phone Care Team Providers Care Test Development Engineer Name Role Phone Jeff Soliz MD Primary Care Provider [phone] Encounter Details Date Type Department Care Team (Late st Contact Info) Description 06/03/2017 Conversion Encounter [facility] [address] [place] [address] Jeff Soliz MD [address] [place] [address] Social History Tobacco Use Types Packs/Day Years [...] on filedocumented in this encounter Care Teams Test Development Engineer Relationship Specialty Start Date End Date Jeff Soliz MD [address] [place] [address] PCP - General Pediatrics 01/20/24 01/20/24 documented as of this encounter
== END 2025-07-05 15:50 | disposition home or self-care (01) ==
LOC: HO.HUSH 15:00
PROVIDERS: Visit Provider Urology
DX: F64.0 Transsexualism (principal); Z79.899 Other long term (current) drug therapy
CPT/HCPCS: 99214; G2211

== ENCOUNTER 2025-08-22 12:50 | Outpatient (AMB) | payer OTHER, SELFPAY ==
--- NOTE | 2025-08-22 12:54 | MHC.OFFVIS ---
Intake Visit Reasons: TESTOPEL Intake Note: Patient is present for Testopel Injection Urology Medication:Testosterone Antibiotic Allergy:none Blood Thinner:none Labs done 06/27/25 : Estradiol : 3, FSH:7.3 , LH 4.8, Prolactin :8.7, Total Testosterone : 11. Fr Testosterone, 2.4 Chemical Process Project Engineer Required: No Accompanied by: Self / Same As Patient Allergies No Known Allergies Allergy (Verified 08/22/25 12:57) HPI Comments Details: Meaghan Alas is a pleasant 20-year-old female template, male identifying patient of Dr. Warner. He is seen for the following urologic conditions - testosterone dosing Here for testosterone pellets Three pellets placed left hip Lab work at 2 weeks and 10 weeks Female template, male identifying - has been under therapy for gender dysphoria since 2022 - Underwent double mastectomy with Dr. Baum in 2022 - initial testosterone replacement via injectable. Has difficulty with proper dosage administration. Unable to properly place intramuscular. Has no other people who are able to inject for him. - unable to tolerate testosterone gel secondary to concerns and fears regarding transfer to other females within his [place]. Has diagnosis of ADHD in concerns about regularly remembering to applied dosage. - ADHD managed with combination considered and bupropion Has heard about testicle which would be a smoother form of administration and not require remembering daily application Discussed administration every 12 weeks Highlighted super physiologic dosing in a Female templated body with increased risks of diabetes mellitus and cardiac disease over a 10 year timeframe. This is based on recent [facility] data. Review of Systems Const Denies chills and Denies fever(s) Card Reports no additional complaints and Denies syncope Resp Denies cough GI Denies abdominal pain and Denies heartburn Reports as per HPI and Denies change in libido Neuro Denies syncope Psych Denies change in libido Endo Denies change in libido Physical Exam Const General: cooperative, healthy appearing, comfortable and no acute distress Orientation/consciousness: patient oriented x3 HEENT Face and sinus: Yes normal facial exam Mouth: moist mucous membranes Neck Neck: Yes normal visual inspection, Yes full ROM and Yes trachea midline Chest Chest palpation & inspection: normal inspection of the chest Resp Effort & Inspection: normal respiratory effort, able to speak in complete sentences and no respiratory distress GI Inspection: Yes normal to inspection Back/Spine/Pelvis Cervical Spine: normal cervical lordosis Thoracic/Lumbar Spine: thoracic and lumbar spine normal to inspection Skin General skin exam: no rashes or lesions noted Neuro General: patient oriented x3, gait normal, tone normal and moves all extremities Extrem General: Yes normal to inspection and Yes capillary refill normal Office Procedures AMB Testopel Details: Testopel Placement Pre Op Diagnosis - transgender testosterone Post Op Diagnosis - transgender Testosterone Procedure: Testopel Insertion The patient was placed in right lateral position with right side down and left side up. The area over the left hip was cleaned with Betadine. A fenestrated drape was placed over the area. Lidocaine 2% was injected first as a skin wheal and then into the subcutaneous tissue directed in a fashion down towards the femur in the subcutaneous space to perform hydrodissection. The purpose of the injection is to numb the length of the trocar track. Testopel was prepared for insertion. Six Testopel pellets were removed from the individual glass containers and placed in a sterile container. This gave time for the lidocaine to work. A 11 Blade scapel was used to make a puncture incision into the subcutaneous space. The trocar with a sharp-ended stylet was inserted through the stab incision at a 45? angle and into the subcutaneous fat layer. The needle was flatten out and advanced leaving the pellet loading area exposed. 3 pellets were inserted using Adson forceps into the loading trocar in a V pattern. The blunt stylet was used to advance pellets into the tract while withdrawing the trocar - 4 pellets and 2 pellets placed in each arm of the V. Once completed the area was wiped with alchohol. Pressure was applied with a small gauze for 2-3 minutes. The trocar insertion site was closed with multiple steristrips and a 2x2 gauze placed with a tegaderm dressing placed. He tolerated the procedure well and was given instructions to remove the Tegaderm dressing in 48 hours. CPT 74655 J3490 Subcutaneous Hormone Pellet Insertion: 96031 Subq Hormone Pellet Insertion Office Meds Testopel 75 mg implant pellet Performing Provider: Tunde Dinh MD [facility] Administered by: Tunde Dinh MD on 08/22/25 13:56 Dose Route Admin Location Dispensed Lot Number Expiration Date [employer] 75 mg implant 3 ea Total Dispensed Waste 3 ea 0 % lidocaine HCl 20 mg/mL (2 %) injection solution Performing Provider: Tunde Dinh MD Performing Location: [facility] Administered by: Tunde Dinh MD on 08/22/25 13:56 Dose Route Admin Location Dispensed Lot Number Expiration Date [facility] Manager Of [employer] 10 mL subcut 10 mL Total Dispensed Waste 10 mL 0 % Assessment & Plan Assessment & Plan (1) Transgender person on hormone therapy: Code(s): F64.0 - Transsexualism; Z79.899 - Other care home (current) drug therapy Category: Medical Plan Lab work 2 weeks, 10 weeks Orders: Orders AMB Testosterone Pellet Implant Today F64.0 - Transsexualism, Z79.899 - Other termite inspector (current) drug therapy Testosterone, Total 2 Weeks F64.0 - Transsexualism, Z79.899 - Other care home (current) drug therapy Testosterone, Total 10 Weeks F64.0 - Transsexualism, Z79.899 - Other care home (current) drug therapy Patient Instructions: This note is constructed using voice recognition software. While every effort has been made to ensure accuracy foreign collection clerk errors may have been included. Imaging studies, laboratory and physical exam results were discussed and reviewed in detail. No major barriers to patient understanding were identified. An opportunity to ask questions regarding the treatment plan was provided. All questions were answered. The patient expressed understanding and agreement with the above treatment plan. The patient is aware they should contact our office by phone for worsening of their current condition or the appearance of new urologic symptoms. Compliance is encouraged with any medications and followup testing that is ordered. It is a privilege to participate in the urologic care of your patient. If you have any questions or concerns regarding treatment for the above conditions, or other urologic issues, please do not hesitate to contact me. The office telephone contact is [phone]. Sincerely, Dr Tunde Dinh MD, [facility] - Urology Compassionate Specialist Care for the Genitourinary System Coding Level of Care Code Procedure Only Diagnoses Transgender person on hormone therapy F64.0; Z79.899
--- OUTSIDE RECORDS SUMMARY | 2025-08-22 16:11 | XMS_ITS | Clinical Summary ---
Author Organization [facility] Address [address] [place] [address] Phone Care Team Providers Care Data Modeler Name Role Phone Unavailable Primary Care Provider [...] INSULIN SYRINGE MUST BE LUER LOCK REF #[id number] 04/21/20 22 Active B-D SYRINGE LUER-ALEX 1CC [...] Plan (05/04/2023 3:30 PM EDT): [facility] Injectable testosterone every other week Assessment & Plan (02/12/2023 12:03 PM EDT): Meeting with surgeon in February for potential top surgery in September Assessment & Plan (12/18/2022 11:04 AM EST): [facility] at [facility], taking testosterone Assessment & Plan (03/31/2022 9:54 AM EDT): Injections weekly Assessment & Plan (12/02/2021 2:12 PM EST): [facility] appointments in [facility] Possible testosterone in February Assessment & Plan (02/21/2021 3:25 PM EDT): He/him pronouns. Prefers [facility]. No hormone therapy now. Possibly starting at [facility] program at [facility] Anxiety disorder 03/01/2020 Assessment & Plan (05/04/2023 [...] given. Discussed neuropsych testing through [facility]'s office. Assessment & Plan (09/07/2017 3:28 PM [...] 06/15/2017 Meningococcal Vaccine Completed 05/13/2021, 016 [facility] [place] [address] [place] [address] [facility]MO [facility]
--- OUTSIDE RECORDS SUMMARY | 2025-08-22 16:11 | XMS_ITS | Clinical Summary ---
Author Organization [facility] Address [address] [place] [address] Phone Care Team Providers Care Touring Production Manager Name Role Phone Jeff Soliz MD Primary Care Provider [phone] Jeff Soliz MD Unavailable Jeff Soliz MD [...] 05/17/2021 Immunizations Immunization Administration Dates Next Due Myfacepage Purple Cap SARS-CoV-2 04/07/2021,03/17/20 21 Social History [...] 09/03/2023 9:11 AM EST Plan of Treatment Not on file Care Teams Touring Production Manager Relationship Specialty Start Date End Date Jeff Soliz MD [address] [place] [address] PCP - General 05/18/13 Jeff Soliz MD [address] [place] [address] PCP - Insurance PCP 10/08/18 Jeff Soliz MD [address] [place] [address] PCP - Clinical PCP 03/25/11
--- OUTSIDE RECORDS SUMMARY | 2025-08-22 16:11 | XMS_ITS | Encounter Summary ---
Author Organization [facility] Address [address] [place] [address] Phone Care Team Providers Care Design Engineer Products Name Role Phone Jeff Soliz MD Primary Care Provider [phone] Reason for Visit * Reason Comments Med Refill Encounter Details Date Type Department Care Team ([facility] st Contact Info) Description 05/10/2022 Refill [facility] [address] [place] [address] Jeff Soliz MD [address] [place] [address] Depressive disorder; Anxiety disorder, unspecified type Social [...] documented in this encounter Care Teams Design Engineer Products Relationship Specialty Start Date End Date Jeff Soliz MD [address] [place] [address] PCP - General Pediatrics 01/20/24 01/20/24 documented as of this encounter
--- OUTSIDE RECORDS SUMMARY | 2025-08-22 16:11 | XMS_ITS | Encounter Summary ---
Author Organization [facility] Address [address] [place] [address] Phone Care Team Providers Care Hand Rigger Name Role Phone Jeff Soliz MD Primary Care Provider [phone] Jeff Soliz MD Unavailable Jeff Soliz MD Unavailable Encounter Details Date Type Department Care Team (Latest Contact Info) Description 03/25/2024 Abstract Cerner Conversion Provider, Historic [address] [place] [address] Social History Tobacco Use Types Packs/Day Years [...] on filedocumented in this encounter Care Teams Hand Rigger Relationship Specialty Start Date End Date Jeff Soliz MD [address] [place] [address] PCP - General 05/18/13 Jeff Soliz MD [address] [place] [address] PCP - Insurance PCP 10/08/18 Jeff Soliz MD [address] [place] [address] PCP - Clinical PCP 03/25/11 documented as of this encounter
--- OUTSIDE RECORDS SUMMARY | 2025-08-22 16:11 | XMS_ITS | Encounter Summary ---
Author Organization [facility] Address [address] [place] [address] Phone Care Team Providers Care Seedling Puller Name Role Phone Jeff Soliz MD Primary Care Provider [phone] Reason for Visit * Reason Comments Med Refill Encounter Details Date Type Department Care Team (Late st Contact Info) Description 03/19/2020 Refill [facility] [address] [place], [place] [phone] Jeff Soliz MD [address] [place] [address] Anxiety disorder, unspecified type Social History Tobacco [...] - 04/02/2020 5:[address] Solzi can you please refuse this med, the [...] type documented in this encounter Care Teams Seedling Puller Relationship Specialty Start Date End Date Jeff Soliz MD [address] [place] [address] PCP - General Pediatrics 01/20/24 01/20/24 documented as of this encounter
--- OUTSIDE RECORDS SUMMARY | 2025-08-22 16:11 | XMS_ITS | Encounter Summary ---
Author Organization [facility] Address [address] [place] [address] Phone Care Team Providers Care Insert Molding Operator Name Role Phone Jeff Soliz MD Primary Care Provider [phone] Encounter Details Date Type Department Care Team (Late st Contact Info) Description 06/03/2017 Conversion Encounter [facility] [address] [place] [address] Jeff Soliz MD [address] [place] [address] Social History Tobacco Use Types Packs/Day Years [...] on filedocumented in this encounter Care Teams Insert Molding Operator Relationship Specialty Start Date End Date Jeff Soliz MD [address] [place] [address] PCP - General Pediatrics 01/20/24 01/20/24 documented as of this encounter
--- OUTSIDE RECORDS SUMMARY | 2025-08-22 16:11 | XMS_ITS | Clinical Summary ---
Author Organization [facility] Address [address] [place] [address] Phone Care Team Providers Care Ampoule Sealer Name Role Phone Purvi Walton NP Primary [...] INSULIN SYRINGE MUST BE LUER LOCK REF #[id number] 2 Active buPROPion (WELLBUTRIN XL) 300 MG [...] YEARS) 2023 INFLUENZA VACCINE (#1) 2025 06/26/2024 COVID-19 VACCINE (2 - 2024- season) 2025 07/14/2024 SMOKING Hx and SMOKELESS TOBACCO SCREENING 09/14/2025 09/14/2024 COMBINED DTaP,Tdap,Td (7 - Td or Tdap) 06/13/2026 06/13/2016, 06/21/2010, 08/14/2006, Additional history exists MMR VACCINES Completed 06/08/2009, 08/14/2006 VARICELLA VACCINES Completed 06/08/2009, 08/14/2006 HEPATITIS A VACCINES Aged Out No long [...] topic Medical Devices Not on file Insurance [facility] Care Teams Ampoule Sealer Relationship Specialty Start Date End Date Purvi aWlton NP [address] [facility] [address] [place] [address] PCP - General Nurse Practitioner 09/05/24 Additional Source Comments The information contained in this document represents components of the legal health record. It is not the complete legal health record.[facility]
--- OUTSIDE RECORDS SUMMARY | 2025-08-22 16:11 | XMS_ITS | Encounter Summary ---
Author Organization [facility] Address [address] [place] [address] Phone Care Team Providers Care Food Storeroom Clerk Name Role Phone Jeff Soliz MD Primary Care Provider [phone] Reason for Visit * Reason Comments Med Refill Encounter Details Date Type Department Care Team ([facility] st Contact Info) Description 07/22/2020 Refill [facility] [address] [place] [address] Jeff Soliz MD [address] [place] [address] Anxiety disorder, unspecified type Social History Tobacco [...] type documented in this encounter Care Teams Food Storeroom Clerk Relationship Specialty Start Date End Date Jeff Soliz MD [address] [place] [address] PCP - General Pediatrics 01/20/24 01/20/24 documented as of this encounter
== END 2025-08-22 14:31 | disposition home or self-care (01) ==
LOC: HO.HUSH 12:50
PROVIDERS: Visit Provider Urology
DX: F64.0 Transsexualism (principal); Z79.899 Other long term (current) drug therapy
CPT/HCPCS: 11980

== ENCOUNTER → 2025-08-22 12:50 | Outpatient (BNVA) | payer OTHER, SELFPAY | PROVIDERS: Visit Provider Urology | DX: F64.0 Transsexualism (principal); Z79.890 Hormone replacement therapy | CPT/HCPCS: 11980; J2003; J3490 ==

== ENCOUNTER 2025-09-08 10:01 | Outpatient (REF) | payer OTHER, SELFPAY ==
--- OUTSIDE RECORDS SUMMARY | 2025-09-08 11:53 | XMS_ITS | Clinical Summary ---
Author Organization [facility] Address [address] [place] [address] Phone Care Team Providers Care Dosier Operator Name Role Phone Jeff Soliz MD Primary Care Provider [phone] Jeff Soliz MD Unavailable Jeff Soliz MD [...] 05/17/2021 Immunizations Immunization Administration Dates Next Due [employer] Purple Cap SARS-CoV-2 04/07/2021,03/17/20 21 Social History [...] of Treatment Not on file Care Teams Dosier Operator Relationship Specialty Start Date End Date Jeff Soliz MD [address] [place] [address] PCP - General 05/18/13 Jeff Soliz MD [address] [place] [address] PCP - Insurance PCP 10/08/18 Jeff Soliz MD [address] [place] [address] PCP - Clinical PCP 03/25/11
--- OUTSIDE RECORDS SUMMARY | 2025-09-08 11:53 | XMS_ITS | Encounter Summary ---
Author Organization [facility] Address [address] [place] [address] Phone Care Team Providers Care Corporate Planning Manager Name Role Phone Jeff Soliz MD Primary Care Provider [phone] Reason for Visit * Reason Comments Med Refill Encounter Details Date Type Department Care Team ([facility] st Contact Info) Description 07/22/2020 Refill [facility] [address] [place] [address] Jeff Soliz MD [address] [place] [address] Anxiety disorder, unspecified type Social History Tobacco [...] type documented in this encounter Care Teams Corporate Planning Manager Relationship Specialty Start Date End Date Jeff Soliz MD [address] [place] [address] PCP - General Pediatrics 01/20/24 01/20/24 documented as of this encounter
--- OUTSIDE RECORDS SUMMARY | 2025-09-08 11:53 | XMS_ITS | Clinical Summary ---
Author Organization [facility] Address [address] [place] [address] Phone Care Team Providers Care Network Solutions Architect Name Role Phone Unavailable Primary Care Provider [...] INSULIN SYRINGE MUST BE LUER LOCK REF #[id number] 04/21/20 22 Active B-D SYRINGE LUER-ALEX 1CC [...] Plan (05/04/2023 3:30 PM EDT): Going to [facility] Injectable testosterone every other week Assessment & Plan (02/12/2023 12:03 PM EDT): Meeting with surgeon in February for potential top surgery in September Assessment & Plan (12/18/2022 11:04 AM EST): [facility] at [facility], taking testosterone Assessment & Plan (03/31/2022 9:54 AM EDT): Injections weekly Assessment & Plan (12/02/2021 2:12 PM EST): Regular appointments in [facility] Possible testosterone in February Assessment & Plan (02/21/2021 3:25 PM EDT): He/him pronouns. Prefers [facility]. No hormone therapy now. Possibly starting at [facility] at [facility] Anxiety disorder 03/01/2020 Assessment & Plan (05/04/2023 [...] now. Refills given. Discussed neuropsych testing through [facility]'s office. Assessment & Plan (09/07/2017 3:28 PM [...] 06/15/2017 Meningococcal Vaccine Completed 05/13/2021, 016 Insurance [facility] Address: [facility] [id number] [id number] [facility] [place] [address] [address] HMO [facility] Address: [facility] [id number] [id number] [facility]
--- OUTSIDE RECORDS SUMMARY | 2025-09-08 11:53 | XMS_ITS | Encounter Summary ---
Author Organization [facility] Address [address] [place] [address] Phone Care Team Providers Care Finance Controller Name Role Phone Jeff Soliz MD Primary Care Provider [phone] Reason for Visit * Reason Comments Med Refill Encounter Details Date Type Department Care Team ([facility] st Contact Info) Description 05/10/2022 Refill [facility] [address] [place] [address] Jeff Soliz MD [address] [place] [address] Depressive disorder; Anxiety disorder, unspecified type Social [...] type documented in this encounter Care Teams Finance Controller Relationship Specialty Start Date End Date Jeff Soliz MD [address] [place] [address] PCP - General Pediatrics 01/20/24 01/20/24 documented as of this encounter
--- OUTSIDE RECORDS SUMMARY | 2025-09-08 11:53 | XMS_ITS | Encounter Summary ---
Author Organization [facility] Address [address] [place] [address] Phone Care Team Providers Care Elevator Dispatcher Name Role Phone Jeff Soliz MD Primary Care Provider Reason for Visit * Reason Comments Med Refill Encounter Details Date Type Department Care Team (Late st Contact Info) Description 03/19/2020 Refill [facility] [address] [place], [place] [id number] Jeff Soliz MD [address] [place] [address] Anxiety disorder, unspecified type Social History Tobacco [...] type documented in this encounter Care Teams Elevator Dispatcher Relationship Specialty Start Date End Date Jeff Soliz MD [address] [place] [address] PCP - General Pediatrics 01/20/24 01/20/24 documented as of this encounter
--- OUTSIDE RECORDS SUMMARY | 2025-09-08 11:53 | XMS_ITS | Encounter Summary ---
Author Organization [facility] Address [address] [place] [address] Phone Care Team Providers Care Independent Marketing Consultant Name Role Phone Jeff Soliz MD Primary Care Provider [phone] Jeff Soliz MD Unavailable Jeff Soliz MD Unavailable Encounter Details Date Type Department Care Team (Latest Contact Info) Description 03/25/2024 Abstract Cerner Conversion Provider, Historic [address] [place] [address] Social History Tobacco Use Types Packs/Day Years [...] on filedocumented in this encounter Care Teams Independent Marketing Consultant Relationship Specialty Start Date End Date Jeff Soliz MD [address] [place] [address] PCP - General 05/18/13 Jeff Soliz MD [address] [place] [address] PCP - Insurance PCP 10/08/18 Jeff Soliz MD [address] [place] [address] PCP - Clinical PCP 03/25/11 documented as of this encounter
--- OUTSIDE RECORDS SUMMARY | 2025-09-08 11:53 | XMS_ITS | Clinical Summary ---
Author Organization [facility] Address [address] [place] [address] Phone Care Team Providers Care Sugar Boiler Name Role Phone Purvi Walton NP Primary [...] INSULIN SYRINGE MUST BE LUER LOCK REF #[id number] 2 Active buPROPion (WELLBUTRIN XL) 300 MG [...] 06/08/2009, 08/14/2006 VARICELLA VACCINES Completed 06/08/2009, 08/14/2006 IPV VACCINES Completed 06/21/2010, 02/0 03/2006, 2005, Additional history exists HEPATITIS A VACCINES Aged Out No long [...] topic Medical Devices Not on file [place] [place] [address] [employer] Care Teams Sugar Boiler Relationship Specialty Start Date End Date Purvi Walton NP [address] [facility] [address] [place] [address] PCP - General Nurse Practitioner 09/05/24 Additional Source Comments The information contained in this document represents components of the legal health record. It is not the complete legal health record.[facility]
--- OUTSIDE RECORDS SUMMARY | 2025-09-08 11:53 | XMS_ITS | Encounter Summary ---
Author Organization [facility] Address [address] [place] [address] Phone Care Team Providers Care Natural Resources Extension Educator Name Role Phone Jeff Soliz MD Primary Care Provider [phone] Encounter Details Date Type Department Care Team (Late st Contact Info) Description 06/03/2017 Conversion Encounter [facility] [address] [place] [address] Jeff Soliz MD [address] [place] [phone] Social History Tobacco Use Types Packs/Day Years [...] on filedocumented in this encounter Care Teams Natural Resources Extension Educator Relationship Specialty Start Date End Date Jeff Soliz MD [address] [place] [address] PCP - General Pediatrics 01/20/24 01/20/24 documented as of this encounter
== END 2025-09-08 10:02 | disposition home or self-care (01) ==
LOC: HO.LAB 10:01
PROVIDERS: PCP Nurse Practitioner Gerontology; Visit Provider Urology
DX: F64.0 Transsexualism (principal); Z79.899 Other long term (current) drug therapy
CPT/HCPCS: 36415; 84403